=== PATIENT | male | born 1955 | race Caucasian/White ===

== ENCOUNTER 2022-11-25 10:36 | Day surgery (SDC) | payer MEDICARE, BC ==
[2022-11-25] VITALS (9 sets, daily range): BP systolic 119–153; BP diastolic 57–96
[~2022-11-25] VITALS: Ht 185.4 cm; Wt 151.9 kg
[2022-11-25] MEDS ORDERED: diphenhydrAMINE 25mg capsule PO PRN (11:00)
[2022-11-25] MEDS ORDERED: normal saline 1,000 ML IV SCH (11:00)
[2022-11-25] MEDS ORDERED: VITA400T10 PO (11:07)
[2022-11-25] MEDS ORDERED: APIX5TAB3 PO (11:07)
[2022-11-25] MEDS ORDERED: LOSA100T57 PO (11:07)
[2022-11-25] MEDS ORDERED: TRIA1CAP88 PO (11:07)
[2022-11-25] MEDS ORDERED: AMLO10TA13 PO (11:07)
[2022-11-25] MEDS ORDERED: SPIR25TA5 PO (11:07)
[2022-11-25] MEDS ORDERED: DICL50TA6 PO (11:07)
[2022-11-25] MEDS ORDERED: VITA-268 PO (11:07)
[2022-11-25] MEDS ORDERED: THIA50TA10 PO (11:07)
[2022-11-25] MEDS ORDERED: ATOR40TA72 PO (11:07)
[2022-11-25 11:36] LABS: BASOPHILS % (AUTO) 0.7 % (0-1); EOSINOPHILS % (AUTO) 0.6 % (0-6); HEMATOCRIT 52.4 % (42.0-52.0); HEMOGLOBIN 17.8 g/dl (14.0-17.9); LYMPHOCYTES # (AUTO) 1.4 X10'3 (1.1-4.8); LYMPHOCYTES % (AUTO) 19.5 % (21-51); MEAN CORPUSCULAR HEMOGLOBIN 33.7 PG (27.0-31.0); MEAN CORPUSCULAR HGB CONC 33.9 g/dL (33.0-36.5); MEAN CORPUSCULAR VOLUME 99.5 FL (78-98); MEAN PLATELET VOLUME 8.2 FL (7.4-10.4); MONOCYTES # (AUTO) 0.5 X10'3 (0-0.9); MONOCYTES % (AUTO) 7.2 % (2-12); NEUTROPHILS # (AUTO) 5.2 X10'3 (1.8-7.7); PLATELET COUNT 125 X10'3 (140-440); RED BLOOD COUNT 5.26 X10'6 (4.70-6.10); RED CELL DISTRIBUTION WIDTH 13.1 % (11.5-14.5); WHITE BLOOD COUNT 7.2 X10'3 (4.5-11.0)
[2022-11-25 12:03] LABS: ALBUMIN 4.2 G/DL (3.4-5.0); ANION GAP 9 (8-16); BLOOD UREA NITROGEN 23 MG/DL (7-18); BUN/CREATININE RATIO 16.9 (5.4-32.0); CALCIUM 9.6 MG/DL (8.5-10.1); CHLORIDE 104 MMOL/L (99-107); CREATININE 1.36 MG/DL (0.60-1.10); GLUCOSE 106 MG/DL (70-104); MAGNESIUM 1.8 MG/DL (1.5-2.4); POTASSIUM 3.9 MMOL/L (3.5-5.1); SODIUM 137 MMOL/L (135-145); eGFR 53 ML/MIN
[2022-11-25] MEDS ORDERED: SODIUM BICARB 150mEq/D5W 1L 1,000 ML IV ONE (12:30)
[2022-11-25] MEDS ORDERED: iohexol 350MG/ML 100ml bottle IV ONE (14:11)
[2022-11-25] MEDS ORDERED: LIDOcaine 1% (10mg/ml) 2ml vial ONE (14:11)
[2022-11-25] MEDS ORDERED: verapamil 2.5 mg/ml inj IV ONE (14:11)
[2022-11-25] MEDS ORDERED: midazolam 1 mg/ML 2ml injection ONE ×2 (14:11→15:07)
[2022-11-25] MEDS ORDERED: fentaNYL/PF 50MCG/1 ML 2ML syringe ONE (14:11)
[2022-11-25] MEDS ORDERED: nitroGLYCERIN-Tridil 50MG/D5W 250 ML IV ONE (14:11)
[2022-11-25] MEDS ORDERED: heparin 1,000unit/ml 10ml vial 10 ML ONE (14:11)
[2022-11-25] MEDS ORDERED: iohexol 350 MG/ML 50ML vial IV ONE (15:01)
[2022-11-25] MEDS ORDERED: LIDOcaine 1% 30ml preserv. free vial ONE (15:06)
[2022-11-25] MEDS ORDERED: ondansetron/PF 4mg/2ml inj IV PRN (16:30)
[2022-11-25] MEDS ORDERED: normal saline 1000ml 1,000 ML IV SCH (16:30)
[2022-11-25] MEDS ORDERED: HYDROcodone/acetaminophen 5mg/325mg tablet PO PRN (16:35)
[2022-11-25] MEDS ORDERED: HYDROcodone/acetaminophen 10/325mg tab PO PRN (16:35)
[2022-11-25] MEDS ORDERED: proCHLORperazine 10 MG/2 ml inj IV PRN (16:35)
== END 2022-11-25 19:30 | disposition home or self-care (01) ==
LOC: SSTAY O 10:36
PROVIDERS: ATTEND Internal Medicine Cardiovascular Disease
DX: R06.02 Shortness of breath (principal); I34.0 Nonrheumatic mitral (valve) insufficiency; I27.20 Pulmonary hypertension, unspecified; I42.9 Cardiomyopathy, unspecified; I10 Essential (primary) hypertension; E66.9 Obesity, unspecified; Z68.41 Body mass index [BMI] 40.0-44.9, adult; Z79.899 Other long term (current) drug therapy
CPT/HCPCS: 36415; 80048; 83735; 85025; 85610; 93005; 93460; 99152; 99153; C1751; C1760; C1769; C1894; J1644; J2250; J3010; J3490; J7030; Q0163; Q9967

== ENCOUNTER 2023-02-07 08:00 | Day surgery (SDC) | payer MEDICARE, BC ==
[~2023-02-07] VITALS: Ht 185.4 cm; Wt 150.6 kg
[~2023-02-07 08:00] MED LIST: AMLO10TA13 PO; APIX5TAB3 PO; ATOR40TA72 PO; DICL50TA6 PO; LOSA100T58 PO; SPIR25TA5 PO; THIA50TA10 PO; TRIA1CAP88 PO; VITA-268 PO; VITA400T10 PO
[2023-02-07 08:40] VITALS: BP 114/76
[2023-02-07] MEDS ORDERED: SACU1TAB4 PO (08:41)
[2023-02-07] MEDS ORDERED: EMPA10TA PO (08:41)
[2023-02-07] MEDS ORDERED: normal saline 1000ml 1,000 ML IV SCH (08:45)
[2023-02-07] MEDS ORDERED: MIDAZolam 1mg/ml 10ml vial IV ONE (08:45)
[2023-02-07] MEDS ORDERED: fentaNYL/PF 50MCG/1 ML 2ML syringe IV ONE (08:45)
[2023-02-07] MEDS ORDERED: glycopyrrolate 0.2mg/ml inj IV ONE (08:55)
[2023-02-07 09:21] LABS: BASOPHILS # (AUTO) 0.1 X10'3 (0-0.2); BASOPHILS % (AUTO) 0.8 % (0-1); EOSINOPHILS # (AUTO) 0.1 X10'3 (0-0.9); EOSINOPHILS % (AUTO) 1.1 % (0-6); HEMATOCRIT 51.2 % (42.0-52.0); HEMOGLOBIN 17.4 g/dl (14.0-17.9); LYMPHOCYTES # (AUTO) 1.5 X10'3 (1.1-4.8); LYMPHOCYTES % (AUTO) 23.2 % (21-51); MEAN CORPUSCULAR VOLUME 99.8 FL (78-98); MEAN PLATELET VOLUME 7.9 FL (7.4-10.4); MONOCYTES # (AUTO) 0.6 X10'3 (0-0.9); MONOCYTES % (AUTO) 9.8 % (2-12); NEUTROPHILS # (AUTO) 4.2 X10'3 (1.8-7.7); NEUTROPHILS % (AUTO) 65.1 % (42-75); PLATELET COUNT 125 X10'3 (140-440); RED BLOOD COUNT 5.13 X10'6 (4.70-6.10); RED CELL DISTRIBUTION WIDTH 13.8 % (11.5-14.5); WHITE BLOOD COUNT 6.5 X10'3 (4.5-11.0)
[2023-02-07 09:34] LABS: ALBUMIN 3.9 G/DL (3.4-5.0); ANION GAP 4 (8-16); BLOOD UREA NITROGEN 32 MG/DL (7-18); BUN/CREATININE RATIO 18.6 (10.0-20.0); CALCIUM 9.3 MG/DL (8.5-10.1); CHLORIDE 102 MMOL/L (99-107); CREATININE 1.72 MG/DL (0.60-1.10); GLUCOSE 108 MG/DL (70-104); MAGNESIUM 2.3 MG/DL (1.5-2.4); POTASSIUM 4.6 MMOL/L (3.5-5.1); SODIUM 134 MMOL/L (135-145); TOTAL CARBON DIOXIDE 27.6 MMOL/L (24-32); eGFR 40 ML/MIN
--- NOTE | 2023-02-07 14:50 | NUR ---
Pt notified that the procedure won't be done for several hours due to one mapping technician. Pt decided to leave and reschedule procedure. Pt ambulated out in stable condition. Procedure canceled.
== END 2023-02-07 14:50 | disposition home or self-care (01) ==
LOC: SSTAY O 08:00
PROVIDERS: ATTEND Internal Medicine Cardiovascular Disease
DX: I34.0 Nonrheumatic mitral (valve) insufficiency (principal); Z53.8 Procedure and treatment not carried out for other reasons; Z79.899 Other long term (current) drug therapy
CPT/HCPCS: 36415; 80048; 82948; 83735; 85025; 85610; J3490; J7030; A4620